=== PATIENT | male | born 1995 | race Caucasian/White ===

== ENCOUNTER 2018-11-12 15:30 | Emergency (ER) | payer OTHER ==
[~2018-11-12] VITALS: Ht 180.3 cm; Wt 90.7 kg
[~2018-11-12 15:30] MED LIST: AZITHROMYCIN250 MG PO; BACTRIM DS TAB1 EACH PO; CEPHALEXIN500 MG PO; CLINDAMYCIN HC300 MG PO; IBUPROFEN200 MG PO; IBUPROFEN600 MG PO; NORCO 5-325 TA1 EACH PO; NYQUIL D COLD295 ML PO; ZOFRAN4 MG PO
== END 2018-11-12 15:42 | disposition home or self-care (01) ==
LOC: ED 15:30
DX: S91.339A Puncture wound without foreign body, unspecified foot, initial encounter (principal); W22.8XXA Striking against or struck by other objects, initial encounter

== ENCOUNTER 2020-03-13 14:33 | Emergency (ER) | payer OTHER ==
[~2020-03-13] VITALS: Ht 180.3 cm; Wt 90.7 kg
[2020-03-13] MEDS ORDERED: PREDNISONE20 MG PO (16:44)
== END 2020-03-13 17:03 | disposition home or self-care (01) ==
LOC: ED 14:33
DX: K92.1 Melena (principal); F17.200 Nicotine dependence, unspecified, uncomplicated
CPT/HCPCS: 36415; 80053; 85025; 99284; J7512

== ENCOUNTER 2020-10-01 00:31 | Emergency (ER) | payer OTHER ==
[~2020-10-01] VITALS: Ht 180.3 cm; Wt 100.2 kg
[~2020-10-01 00:31] MED LIST changes: +PREDNISONE20 MG PO
== END 2020-10-01 02:58 | disposition home or self-care (01) ==
LOC: ED 00:31
DX: J01.90 Acute sinusitis, unspecified (principal); Z20.822 Contact with and (suspected) exposure to COVID-19; F17.200 Nicotine dependence, unspecified, uncomplicated
CPT/HCPCS: 99283; C9803; U0003